=== PATIENT | female | born 1980 | race Caucasian/White ===

== ENCOUNTER 2022-08-31 07:59 | Outpatient (CLI) | payer OTHER, SELFPAY ==
--- NOTE | 2022-08-31 08:00 | ECG_ITS ---
Measurements Intervals [place] Rate: 87 P: -18 IN: 138 QRS: 73 QRSD: 94 T: 8 QT: 353 QTc: 426 Interpretive Statements SINUS RHYTHM BASELINE ARTIFACT- I, II, III, AVR, AVL, AVF NORMAL ECG NO PREVIOUS ECG AVAILABLE FOR COMPARISON Electronically Signed On 08-31-2022 8:56:44 CDT by Lam Burt D.O.
[2022-08-31 08:35] LABS: Hematocrit 41.1 % (37.0-47.0); Hemoglobin 13.7 g/dL (12.0-15.0)
== END 2022-08-31 08:00 | disposition home or self-care (01) ==
LOC: ANHSURGERY 08:04
PROVIDERS: Anesthesiology; PCP Physician Assistant; Visit Provider Surgery Plastic and Reconstructive Surgery
DX: Z01.818 Encounter for other preprocedural examination (principal); I10 Essential (primary) hypertension
CPT/HCPCS: 36415; 85014; 85018; 93005

== ENCOUNTER 2022-09-05 00:37 | Day surgery (SDC) | payer OTHER, SELFPAY ==
[2022-08-25 10:22] VITALS: BMI 29.2
--- NOTE | 2022-08-25 10:28 | PC.NURSE ---
Report to the Outpatient Waiting Room, entrance under the green pavilion located off [facility], at time 8:30 on date 09/05/22. Planned Procedure Time: 10:30. Time changes happen often and if your time is changed the preop area will call you the afternoon before. - You and your visitor will be asked to self-screen and do not enter if you have any COVID symptoms. - Only one visitor is requested with a max of two and NO children visitors are allowed at this time. - The patient visitor may be requested to leave or wait in car when not with patient due to distancing restrictions. - A mask is optional within the hospital at this time. Patients may have clear liquids (water, carbonated beverages, clear teas, apple juice) until 3 hours prior to surgery (7:30) with a maximum of 20 ounces. - No food from midnight until time of surgery Take the following medications with a SIP of water the morning of surgery: TOPAMAX. ACYCLOVIR, CIPRO, CYCLOBENZAPRINE, TRAMADOL - IF NEEDED DO NOT STOP ANY OF YOUR OTHER PRESCRIPTION MEDICATIONS PRIOR TO SURGERY EXCEPT THE FOLLOWING Medications to discontinue per physician: VITAMINS/SUPPLEMENTS Date to take last dose: 09/01/[address] LEA'S INSTRUCTIONS REGARDING MELOXICAM Please no make-up, nail jordanian, hairspray, perfume, deodorant, or body powder the day of surgery. No jewelry (including any body piercings) or valuables the day of surgery, leave them at home. Please take a shower or bath the night before, or the morning of, surgery with an antibacterial soap. Wear comfortable, loose fitting clothing. - Jewelry must be removed prior to entering the operating room. Rings and piercings that are not removed may be cut off. - The hospital will not accept responsibility for valuables. - Please leave all valuables, including medications, at home the day of surgery. If you are going home after surgery, a licensed otr truck driver must drive you home. - NO public transportation without another adult if you receive anesthesia. - We recommend that an adult stay with you for 24 hours following discharge. - We also recommend that you do not drive, make important decision, drink alcoholic beverages, or take any drugs that were not prescribed by your health care provider for at least 24 hours after your discharge time. Follow any additional instructions given to you from your surgeon. If you or anyone in your household have experienced Covid symptoms in the past week, please notify your surgeon or the nurse liaison at the phone number below for possible testing. Telephone instructions given to CHRISTINE ENGLE and asked if any additional questions and then verbalized understanding. Patient advised to call surgeon office or pre surgery nurse liaison [phone] if any additional questions.
--- NOTE | 2022-09-04 15:19 | WPDANESEPPF ---
Anes - Initial Pre Proc Eval Procedure: Operation Date: 09/05/22 10:30 Proposed Procedures p Bilateral Breast Implant Removal with Capsulectomy - Marcell Last MD s Bilateral Mastopexy, Liposuction To Bilateral Lateral Breast - Marcell Last MD Date/Time: 09/04/22 15:19 Surgeon: Marcell Last MD Pre Op Diagnosis: hx of breast augmentation Patient Data Age: 42 Gender: F Height: 1.63 m Weight: 77.11 kg Allergies Allergy/AdvReac Type Severity Reaction Status Date / Time doxycycline Allergy Unknown Vomiting Verified 09/05/22 09:14 Sulfa (Sulfonamide Allergy Unknown Hives Verified 09/05/22 09:15 Antibiotics) Home Medications Medication Instructions Recorded Confirmed Type acyclovir 200 mg capsule 200 mg PO DAILY PRN Cold Sores 08/25/22 09/05/22 History alprazolam 0.25 mg tablet (Xanax) 0.25 mg PO HS 08/25/22 08/25/22 History cholecalciferol (vitamin D3) 125 125 mcg PO DAILY 08/25/22 09/05/22 History mcg (5,000 unit) tablet (Vitamin D3) ciprofloxacin HCl 500 mg tablet 500 mg PO Q12H PRN UTI 08/25/22 08/25/22 History (Cipro) cyclobenzaprine 10 mg tablet 10 mg PO TID PRN Pain 08/25/22 08/25/22 History lisinopril 10 mg tablet 10 mg PO DAILY 08/25/22 08/25/22 History mecobalamin (vitamin B12) 10,000 10,000 mcg subcut WEEKLY 08/25/22 09/05/22 History mcg solution for injection meloxicam 15 mg tablet 15 mg PO DAILY 08/25/22 09/05/22 History multivitamin 1 tablet PO DAILY 08/25/22 09/05/22 History phentermine 37.5 mg tablet 37.5 mg PO DAILY 08/25/22 08/25/22 History sumatriptan succinate 50 mg tablet 50 mg PO ONCE 08/25/22 08/25/22 History (Imitrex) topiramate 50 mg tablet (Topamax) 50 mg PO BID 08/25/22 09/05/22 History tramadol 50 mg tablet 50 mg PO Q6H PRN Pain 08/25/22 08/25/22 History Patient hx anesthesia problems: none Family hx anesthesia problems: none Results Review: All pre-operative results and documents have been reviewed as part of the pre-operative evaluation. [facility] Past Medical History Medical History (Updated 09/04/22 @ 15:19 by Luis Miguel Hunt MD) Anxiety HTN (hypertension) Overweight (BMI 25.0-29.9) Social History Social History Smoking status: Never smoker Alcohol intake: current Drinks per week: 4 Substance use: never Substance use type: does not use Living arrangements: with family Spiritual care concerns: No Anes - Eval Final PreProcedure Day of Procedure 09/04/22 15:19 Patient weight: overweight Heart: regular rate and rhythm Lungs: clear to auscultation and normal air movement Airway: Mallampati scale class II Neurological: alert and oriented Last oral intake: >/= 8 hours ASA classification: III Emergent: no Anesthetic plan: proceed Anesthesia type and monitoring: general LMA Results Review: All pre-operative results and documents have been reviewed as part of the pre-operative evaluation. Informed Consent: The patient's anesthetic plan and its attendant risks and benefits were discussed with the patient/family/POA. Questions were solicited and answers provided to the satisfaction of the patient/family/POA.
[2022-09-05] VITALS (12 sets, daily range): BP systolic 99–136; BP diastolic 59–95; PULSE 69–98; RESP 10–20; TEMP 36.1–36.3; O2SAT 93–100; BMI 29.9
[2022-09-05 08:49] LABS: Urine Cotinine NEGATIVE
[2022-09-05] MEDS: LACTATED RINGERS 1,000 ML 30 ML IV CONT ×2 (08:55→12:56)
[2022-09-05] MEDS: SCOPOLAMINE 1.5 MG PATCH TRANSDERM (09:04)
--- NOTE | 2022-09-05 10:03 | WPDHPUPDATE1 ---
History and Physical Update Update Date/Time: 09/05/22 10:03 History and Physical has been reviewed, including an updated exam of the patient. There are NO changes in the patient's condition. Risks, benefits, and alternatives have been discussed and questions answered. Patient agrees to proceed with procedure.
--- NOTE | 2022-09-05 10:08 | W.PM.PROC2 ---
Procedure Note - Detailed Date of Procedure 09/05/22 Pre-op Diagnosis hx of breast augmentation Post-op Diagnosis Same Procedure Performed 1. Bilateral implant removal with capsulectomy 2. Bilateral mastopexy with lateral breast suction lipectomy Surgeon Marcell Last MD Anesthesia General Findings No adjustment of NAC location Corrected Nipple-IMF distance bilateral Lateral wall suction lipectomy 500 cc Previous implants bilateral smooth silicone 15-304. No seroma. No worrisome features. Description of Procedure She is here today for the above procedure. They are happy with her nipple location; however, unhappy with nipple to IMF length. She has a medialized NAC and understand it's unlikely I'll be able to adjust this as much as they wish. We marked out the plan of adjust of nipple to IMF in particularly lateral. She understands this is a third breast surgery which carries increased risks. Previously and again today the risks, benefits, alternatives were discussed in extensive detail. I wanted her to be very realistic about the risks involved as well as expectations. We discussed aftercare and what to monitor for. Made sure answered all of her questions to her satisfaction today and consent was obtained. Marked in the preoperative holding area with their verification. The patient was taken to the operating room placed supine on the operating table. Anesthesia was provided by anesthesiology. A surgical time-out was taken. We cleansed the skin and 1% lidocaine and 0.25% Marcaine with epinephrine was used anesthetize as a field block. She was prepped and draped in a standard sterile fashion. A 15 blade used to make an incision along the IMF. Dissection was continued until the capsule was identified and I elevated superficial to the capsule to complete a partial capsulectomy. Implant was removed an I copiously irrigated with 3L of saline on TUR tubing. I tailor tacked the breast into position. Placed her in a sitting position. Verified the markings. She was placed supine. I excised the lower IMF skin and then closed with 2-0 Stratafix 3-0 strata fix and running subcuticular 4-0 Monocryl and tissue glue. Fluffs and surgical bra were placed. Estimated Blood Loss 75 Drains No Packing No Pathology Yes (Bilateral breast capsules) Complications No immediate complications Condition Stable Disposition PACU
[2022-09-05] MEDS: BUPivacaine HCL 0.25% PF 30 ML VIAL INFILTRATE (10:29)
[2022-09-05] MEDS: LACTATED RINGERS IRRIG 1,000 ML, LIDOCAINE HCL 1% LOCAL INJ 50 ML, EPINEPHrine HCL INJ ... INFILTRATE (10:29)
[2022-09-05] MEDS: LIDO 1%/EPINEPHRINE 1:100,000 50 ML VIAL 30 ML INFILTRATE (10:29)
[2022-09-05] MEDS: TRANEXAMIC ACID 1,000MG/ISO100 1,000 MG/100 ML BAG 200 MG IVPB (10:29)
[2022-09-05] MEDS: ceFAZolin 2 GM/D5W 50 ML 2 GM/50 ML BAG IVPB (10:29)
[2022-09-05] MEDS: fentaNYL CITRATE INJ (*CRX) 100 MCG/2 ML VIAL 25 MCG IV PUSH ×6 (13:32→14:23)
[2022-09-05] MEDS: oxyCODONE HCL (*CRX) 5 MG TAB IR PO (14:45)
[2022-09-05] MEDS: diphenhydrAMINE HCl INJ 50 MG/ML VIAL 12.5 MG IV PUSH (14:53)
== END 2022-09-05 16:00 | disposition home or self-care (01) ==
PROVIDERS: PCP Physician Assistant; Visit Provider Surgery Plastic and Reconstructive Surgery
PROC: (CPT 19342; principal; 2022-09-05 10:30)
PROC: (CPT 19316; 2022-09-05 10:30)
DX: Z41.1 Encounter for cosmetic surgery (principal); I10 Essential (primary) hypertension; F41.9 Anxiety disorder, unspecified; Z79.899 Other long term (current) drug therapy
CPT/HCPCS: 19370; 19316; 15877; 80307; 88304; A9270; J0171; J0690; J1100; J1170; J1200; J2250; J2370; J2405; J2704; J3010; J7120